=== PATIENT | female | born 1960 | race African-American/Black ===

== ENCOUNTER 2019-10-05 01:00 | Inpatient (IN) ==
[2019-10-05] MEDS ORDERED: KETOROLAC TROMETHAMINE 15 MG/ML VIAL IV STA (01:13)
[2019-10-05] MEDS ORDERED: SODIUM CHLORIDE 0.9% 1000ML 2,000 ML IV ONE (01:13)
[2019-10-05] MEDS ORDERED: MoRPHine SULFATE 4 MG/ML 1 ML CARP\\VIAL IV STA ×2 (01:13→01:41)
[2019-10-05] MEDS ORDERED: ONDANSETRON INJ 2 MG/ML 2 ML VIAL IV STA ×2 (01:13→02:03)
[2019-10-05] MEDS ORDERED: GI COCKTAIL ED USE PO ONE (01:41)
[2019-10-05 01:42] LABS: Hematocrit (blood only) 41.3 % (37-47); Hemoglobin 14.1 g/dL (12.0-16.0); Mean Corpuscular Hemoglobin 31.8 pg (25-34); Mean Corpuscular Hgb Conc 34.1 g/dL (32-36); Mean Corpuscular Volume 93.2 fL (80-100); Mean Platelet Volume 9.7 fL (7.4-10.4); Platelet Count 206 K/uL (130-400); RDW Coefficient of Variation 12.6 % (11.5-14.5); RDW Standard Deviation 43.1 fL (36.4-46.3); Red Blood Count 4.43 M/uL (4.2-5.4); White Blood Count 5.41 K/uL (4.8-10.8)
[2019-10-05 01:59] LABS: Alanine Aminotransferase 26 U/L (12-78); Aspartate Aminotransferase 81 U/L (15-37); BUN Creatinine Ratio 14.8 (10-20); Blood Urea Nitrogen 16 mg/dl (7-18); Calcium 8.8 mg/dl (8.5-10.1); Carbon Dioxide 28 mmol/L (21-32); Chloride 101 mmol/L (98-107); Creatinine Clr Calc Pharmacy 73.8 ml/min; Est GFR (African American) 65.1; Est GFR (Non-African American) 56.1; Glucose 133 mg/dl (70-99); Lipase 89 U/L (73-393); Potassium 2.9 mmol/L (3.5-5.1); Sodium 137 mmol/L (136-145)
[2019-10-05 02:04] LABS: Albumin Globulin Ratio 0.9 (0.9-2); Alkaline Phosphatase 133 U/L (45-117); Bilirubin,Total 0.4 mg/dl (0.2-1); Globulin 4.5 gm/dl (2.5-4.0); Total Protein 8.5 gm/dl (6.4-8.2); Troponin I < 0.015 ng/ml (0-0.045)
[2019-10-05 02:40] LABS: ALC (manual) 3.18 K/uL (1.2-3.4); ANC (manual) 1.71 K/uL (1.4-6.5); Eosinophils # (manual) 0.14 K/uL (0-0.5); Eosinophils % (manual) 2.6 %; Lymphocytes # (manual) 1.23 K/uL (1.2-3.4); Lymphocytes % (manual) 22.8 %; Monocytes # (manual) 0.38 K/uL (0.11-0.59); Neutrophils # (manual) 1.71 K/uL (1.4-6.5); Neutrophils % (manual) 31.6 %; Reactive Lymphocytes # (manual) 1.95 K/uL; Toxic Vacuolation 2+
[2019-10-05] MEDS ORDERED: IOVERSOL 100ml IV PRN (02:40)
[2019-10-05] MEDS ORDERED: POTASSIUM CHLORIDE / WTR 10 MEQ/100 ML PLCT IV ONE (03:19)
--- NOTE | 2019-10-05 04:46 | Emergency Department Note ---
Entered by Skye Mccauley acting as a scribe for Memo Fleming DO History of Present Illness General Chief complaint: Abdominal Pain Stated complaint: abdominal pain Time Seen by Provider: 10/05/19 01:02 Source: patient History of Present Illness Onset (ago): hour(s) (2.5) Location: abdomen (lower) Severity: similar to prior episodes Pain Consistency: + other (persistent) Associated symptoms: + other (negative runny nose); no cough and no nausea/vomiting The patient is a 58 year old female with PMHx of gastric bypass who presents to the Emergency Room with complaints of persistent lower abdominal pain that began 2.5 hours prior to arrival. The patient denies cough, runny nose, nausea, and vomiting. She states that her last bowel movement was just prior to arrival. The patient states that her pain began immediately after eating. The patient states that after her gastric bypass her mesh moved and states that her symptoms feel similar to this prior episode. The patient reports a history of a cholecystectomy. Patient denies any chest pain shortness of breath. Home Medications Home Medications Medication Instructions Recorded Confirmed Type multivitamin 1 tab PO DAILY 10/05/19 10/05/19 History potassium chloride 0 meq PO DIRECTED 10/05/19 10/05/19 History torsemide 20 mg PO DAILY 10/05/19 10/05/19 History Allergies Allergy/AdvReac Type Severity Reaction Status Date / Time Sulfa (Sulfonamide Allergy Hives Verified 10/05/19 02:18 Antibiotics) Past Med/Surg History Surgical History History of cholecystectomy History of gastric bypass Family History Other No pertinent family history in first degree relatives Social History Feels Safe at Home: Yes Smoking Status: Never smoker Review of Systems See HPI for pertinent positives & negatives. and A total of 10 systems reviewed and were otherwise negative Physical Exam Vital Signs Vital Signs - 24 hr 10/05/19 01:10 10/05/19 01:17 10/05/19 01:50 Temperature 36.5 C Temperature Source Oral Pulse Rate 66 57 L Pulse Rate from SpO2 Sensor Respiratory Rate 20 20 Respiratory Effort / Characteristics Non-Labored Respiratory Depth Normal Blood Pressure 128/64 126/73 Blood Pressure Mean 85 84 Blood Pressure Position Lying Pulse Oximetry 98 Oxygen Delivery Method Room Air Room Air Sepsis Recent Fever Within 48 Hours No Sepsis Action Taken by Nursing No Action Required 10/05/19 03:16 Temperature Temperature Source Pulse Rate 85 Pulse Rate from SpO2 Sensor 85 Respiratory Rate 22 Respiratory Effort / Characteristics Respiratory Depth Blood Pressure 111/49 L Blood Pressure Mean 80 Blood Pressure Position Pulse Oximetry 100 Oxygen Delivery Method Room Air Sepsis Recent Fever Within 48 Hours Sepsis Action Taken by Nursing GENERAL: Sitting up in bed, screaming, holding lower abdomen, non-toxic, in hospital gown. EYE EXAM: normal conjunctiva OROPHARYNX: no exudate, no erythema, lips, buccal mucosa, and tongue normal and mucous membranes are moist NECK: supple, no nuchal rigidity, no adenopathy, non-tender LUNGS: Clear to auscultation. Normal chest wall mechanics HEART: Bradycardic rate. No murmurs, S1 normal and S2 normal ABDOMEN: Minimal tenderness under the pannus infraumbilically. Abdomen soft, normo-active bowel sounds, no masses, no rebound or guarding. BACK: Back is symmetrical on inspection and there is no deformity, no midline tenderness, no CVA tenderness. SKIN: no rashes and no bruising UPPER EXTREMITIES: upper extremities are grossly normal. LOWER EXTREMITIES: No pitting edema. NEURO EXAM: Normal sensorium, cranial nerves II-XII grossly intact, normal speech, no gross weakness of arms, no gross weakness of legs. Course Course ED COURSE: Vital signs were reviewed and showed bradycardia. The patients medical record was reviewed The above diagnostic studies were performed and reviewed. ED treatments and interventions as stated above. 0108: The patient was evaluated in room B6. A complete history and physical examination was performed. 0408: I discussed the case with Dr. Vic Olmstead who states that he will evaluate the patient. Dr. Vic Olmstead requests further evaluation of the patient by the hospitalist service. 0411: Upon reevaluation, the patient is resting comfortably. I discussed my findings with the patient and she understands and agrees with the treatment plan. Based on the patients age, coexisting illnesses, exam and lab findings the decision to treat as an inpatient was made. The patient remained stable while under my care. 0413: The patient will be evaluated for further management. I discussed the case with Dr. Curtis Hospitalist who accepts the patient for further evaluation. Administered Medications Ioversol (Optiray 320 100ml) 94 ml IV ONCE PRN PRN Reason: Interaction Checking Stop: 10/09/19 02:39 Last Admin: 10/05/19 02:40 Dose: 94 ml Documented by: [id number] Discontinued Medications Al Hydrox/Mg Hydrox/Simethicone () 1 dose PO ONE ONE Stop: 10/05/19 01:42 Last Admin: 10/05/19 01:55 Dose: 1 dose Documented by: [id number] Sodium Chloride (Nss 1000ml) 2,000 mls @ 999 mls/hr IV .Q2H1M ONE Stop: 10/05/19 03:13 Last Infusion: 10/05/19 04:04 Dose: 0 mls/hr Documented by: [id number] Admin: 10/05/19 01:38 Dose: 999 mls/hr Documented by: [id number] Potassium Chloride (K Jaime / Wtr) 10 meq in 100 mls @ 100 mls/hr IV ONE ONE Stop: 10/05/19 04:18 Last Admin: 10/05/19 04:24 Dose: 100 mls/hr Documented by: [id number] Ketorolac Tromethamine (Toradol) 15 mg IV NOW STA Stop: 10/05/19 01:14 Last Admin: 10/05/19 01:28 Dose: 15 mg Documented by: [id number] Morphine Sulfate (Morphine Sulfate) 4 mg IV NOW STA Stop: 10/05/19 01:14 Last Admin: 10/05/19 01:28 Dose: 4 mg Documented by: [id number] Morphine Sulfate (Morphine Sulfate) 4 mg IV NOW STA Stop: 10/05/19 01:42 Last Admin: 10/05/19 01:54 Dose: 4 mg Documented by: [id number] Ondansetron HCl (Zofran) 4 mg IV NOW STA Stop: 10/05/19 01:14 Last Admin: 10/05/19 01:28 Dose: 4 mg Documented by: [id number] Ondansetron HCl (Zofran) 4 mg IV NOW STA Stop: 10/05/19 02:04 Last Admin: 10/05/19 02:13 Dose: 4 mg Documented by: [id number] Medical Decision Making Differential Diagnosis Differential diagnoses includes but is not limited to gastritis, peptic ulcer disease, GERD, gallbladder disease, pancreatitis, small bowel obstruction, acute coronary syndrome, pericarditis, ischemic bowel, irritable bowel disease, irritable bowel syndrome, appendicitis, diverticulitis, malignancy, hernia, urinary tract infection, torsion, /ectopic , perforation, trauma, infectious. Medical Records Attestation: I reviewed the patient's medical records. Home Medications Current Medication List: was personally reviewed by me Laboratory Data Attestation: I reviewed the patient's lab results. Result diagrams: 10/05/19 01:29 10/05/19 01:29 Lab Results 10/05/19 10/05/19 Range/Units 01:29 01:29 WBC 5.41 (4.8-10.8) K/uL RBC 4.43 (4.2-5.4) M/uL Hgb 14.1 (12.0-16.0) g/dL Hct 41.3 (37-47) % MCV 93.2 (80-100) fL MCH 31.8 (25-34) pg MCHC 34.1 (32-36) g/dL RDW Std Deviation 43.1 (36.4-46.3) fL RDW Coeff of Gonzalo 12.6 (11.5-14.5) % Plt Count 206 (130-400) K/uL MPV 9.7 (7.4-10.4) fL Neutrophils % (Manual) 31.6 % Lymphocytes % (Manual) 22.8 % Reactive Lymphs % (Man) 36.0 % Monocytes % (Manual) 7.0 % Eosinophils % (Manual) 2.6 % Neutrophils # (Manual) 1.71 (1.4-6.5) K/uL Total Absolute Neuts 1.71 (1.4-6.5) K/uL Lymphocytes # (Manual) 1.23 (1.2-3.4) K/uL Reactive Lymphs # 1.95 K/uL Total Abs Lymphocytes 3.18 (1.2-3.4) K/uL Monocytes # (Manual) 0.38 (0.11-0.59) K/uL Eosinophils # (Manual) 0.14 (0-0.5) K/uL Toxic Vacuolation 2+ Sodium 137 (136-145) mmol/L Potassium 2.9 L (3.5-5.1) mmol/L Chloride 101 (98-107) mmol/L Carbon Dioxide 28 (21-32) mmol/L Anion Gap 8.0 (3-11) BUN 16 (7-18) mg/dl Creatinine 1.08 (0.6-1.2) mg/dl Est Cr Clr Drug Dosing 73.8 ml/min Est GFR ( Amer) 65.1 Est GFR (Non-Af Amer) 56.1 BUN/Creatinine Ratio 14.8 (10-20) Glucose 133 H (70-99) mg/dl Calcium 8.8 (8.5-10.1) mg/dl Total Bilirubin 0.4 (0.2-1) mg/dl AST 81 H (15-37) U/L ALT 26 (12-78) U/L Alkaline Phosphatase 133 H (45-117) U/L Troponin I < 0.015 (0-0.045) ng/ml Total Protein 8.5 H (6.4-8.2) gm/dl Albumin 4.0 (3.4-5.0) gm/dl Globulin 4.5 H (2.5-4.0) gm/dl Albumin/Globulin Ratio 0.9 (0.9-2) Lipase 89 (73-393) U/L Imaging Data Radiologist's Impression: Radiology results as stated below per my review and the radiologist's interpretation: CT ABDOMEN & PELVIS With Contrast: Small bowel obstruction with transition point of which is in the left lower quadrant (image [id number]). Fecalization within the upstream bowel which measures 4.4 cm. No pneumatosis, portal venous gas, or free air. Status post Trini-en-Y gastric bypass. Reactive free fluid in the left lower quadrant. No fluid collection. Radiologist: Brooks Chang MD Study ready at 02:43 and initial results transmitted at 03:09 ECG Data Attestation: I personally reviewed and interpreted this ECG as follows: Indication: + abdominal pain Rate (beats per minute): 58 Rhythm: + sinus bradycardia ECG Intervals/blocks: + Prolonged QT ECG Makanda: + Normal ECG Findings: no PVCs Blood Pressure Blood Pressure Findings: Normal blood pressure MDM Narrative Patient is a 58-year-old female from the [facility] that presents the ER for abdominal pain. Past medical history of gastric bypass about 3 to 4 years ago. IV was established blood work was obtained. Labs show no significant leukocyt osis or anemia. BMP with mild hypokalemia at 2.9. LFTs bilirubin troponin lipase was unremarkable. EKG was nondiagnostic. CT of the abdomen pelvis shows small bowel obstruction. Patient was given 2 dose of IV morphine and IV Zofran. She felt significantly better. She was given IV fluids. She was updated bedside. Discussed with general surgery who recommended admission to the hospitalist. They were both updated and patient was admitted for further work- up of her SBO. Potassium was repleted IV as well throughout the stay in the ER. Impression & Plan SBO (small bowel obstruction), Abdominal pain, Vomiting, Hypokalemia Discharge Plan Visit Data Chief Complaint: Abdominal Pain Stated Complaint: abdominal pain ED Provider: Memo Fleming Discharge Problem: SBO (small bowel obstruction), Abdominal pain, Vomiting, Hypokalemia Patient Disposition: Being Evaluated by Hospitalist Forms Stand Alone Forms: Call Back Authorization, [facility] Prescriptions Prescriptions: No Action torsemide 20 mg Tablet 20 mg PO DAILY RF: 0 multivitamin Tablet 1 tab PO DAILY RF: 0 potassium chloride 10 mEq Tablet Extended Release 0 meq PO DIRECTED RF: 0 Referrals Referrals: PCP,NO [Primary Care Provider] - Discharge Problem: Abdominal pain Qualifiers: Abdominal location: lower abdomen, unspecified Qualified Code(s): R10.30 - Lower abdominal pain, unspecified Vomiting Qualifiers: Vomiting type: unspecified Vomiting Intractability: non-intractable Nausea presence: with nausea Qualified Code(s): R11.2 - Nausea with vomiting, unspecified The scribe's documentation has been prepared under my direction and personally reviewed by me in its entirety. I confirm that the note above accurately reflects all work, treatment, procedures, and medical decision making performed by me.
--- NOTE | 2019-10-05 05:59 | Surgery Consultation ---
Date of Consultation October 05, 2019 Assessment & Plan (1) SBO (small bowel obstruction): pt is a 58 year-old female who presents to ER with 4 hours history abdominal pain, with nausea and vomiting. IMP: SBO, Hypokalemia Plan, I agrees with hospitalist admit pt to hospital , conservative treatment first, NPO, IV fluid, control pain, may need NG tube insertion if pt gets more abdominal or nausea and vomiting, correct low K. repeat labs in am, D/W surgery indication if pt get worse symptoms, pt said that she prefer to go back her surgeon, [place], [place] if she needs surgery. 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, pt understood, she agrees with the plans, I answered all questions, Present on Admission?: Yes (2) Abdominal pain: (3) Vomiting: (4) Hypokalemia: History of Present Illness History of Present Illness Chief complaint: Abdominal Pain Stated complaint: abdominal pain Time Seen by Provider: 10/05/19 01:02 Source: patient History of Present Illness Onset (ago): hour(s) (2.5) Location: abdomen (lower) Severity: similar to prior episodes Pain Consistency: + other (persistent) Associated symptoms: + other (negative runny nose); no cough and no nausea/vomiting The patient is a 58 year old female with PMHx of gastric bypass who presents to the Emergency Room with complaints of persistent lower abdominal pain that began 2.5 hours prior to arrival. The patient denies cough, runny nose, nausea, and vomiting. She states that her last bowel movement was just prior to arrival. The patient states that her pain began immediately after eating. The patient states that after her gastric bypass her mesh moved and states that her symptoms feel similar to this prior episode. The patient reports a history of a cholecystectomy. Patient denies any chest pain shortness of breath. I (Donny Phipps MD)got a call for consult SBO, I reviewed pt's H/P, labs, CT scan with pt. pt had gastric bypass surgery with loss 260 LBS 3 years ago, then pt had cholecystectomy and repair ventral hernia with mesh X2 , 2 years ago , all surgery were done in [place], [place]. now, pt has no abdominal, no nausea or vomiting, pt passed BM today. Allergies Allergy/AdvReac Type Severity Reaction Status Date / Time Sulfa (Sulfonamide Allergy Hives Verified 10/05/19 02:18 Antibiotics) Home Medications Home Medications Medication Instructions Recorded Confirmed Type multivitamin 1 tab PO DAILY 10/05/19 10/05/19 History potassium chloride 0 meq PO DIRECTED 10/05/19 10/05/19 History torsemide 20 mg PO DAILY 10/05/19 10/05/19 History Patient History Surgical History History of cholecystectomy History of gastric bypass Family History Other No pertinent family history in first degree relatives Social History Feels Safe at Home: Yes Smoking Status: Never smoker Review of Systems Review of Systems: All systems reviewed & are unremarkable except as noted in HPI & below Constitutional: as per Subjective / HPI Ear, Nose, Mouth, Throat: as per Subjective / HPI Respiratory: as per Subjective / HPI Cardiovascular: as per Subjective / HPI Gastrointestinal: gastric bypass 3 years ago, cholecystectomy, repair ventral hernia with mesh 2 years ago, Genitourinary: as per Subjective / HPI Musculoskeletal: as per Subjective / HPI Integumentary: as per Subjective / HPI Neurologic: as per Subjective / HPI Psychiatric: as per Subjective / HPI Endocrine: as per Subjective / HPI Hematologic / Lymphatic: as per Subjective / HPI Physical Exam Constitutional: WD/WN, vitals as above well developed and well nourished Eyes: PERRL, conjunctivae normal, anicteric sclerae ENMT: external ear and nose normal, oropharynx normal Neck: trachea midline, no thyromegaly Respiratory: normal respiratory effort, lungs clear to auscultation normal respiratory effort Cardiovascular: RRR, no murmur, no edema Rate/Rhythm: regular rate and regular rhythm Heart Sounds: normal S1 and normal S2 Gastrointestinal (Abdomen): normal bowel sounds, soft, nontender, no hepatosplenomegaly Percussion/Palpation: abdomen soft no tenderness, no distend, BS +, Musculoskeletal: no cyanosis or clubbing, extremities motor strength 5/5 Skin: no rashes, warm and dry Neurologic: patellar DTR's 2+ bilat, sensation intact Psychiatric: Orientation: alert and oriented x 3 Results & Data Vital Signs (Past 12 Hours) Vital Signs Temp Pulse Resp BP Pulse Ox 12/13/19 05:00 70 22 136/77 98 10/05/19 04:30 61 16 123/73 95 10/05/19 04:14 66 20 132/78 100 10/05/19 03:16 85 22 111/49 L 100 10/05/19 01:50 57 L 20 126/73 10/05/19 01:17 98 10/05/19 01:10 36.5 C 66 20 128/64 Laboratory Results Abnormal lab results 10/05/19 Range/Units 01:29 Potassium 2.9 L (3.5-5.1) mmol/L Glucose 133 H (70-99) mg/dl AST 81 H (15-37) U/L Alkaline Phosphatase 133 H (45-117) U/L Total Protein 8.5 H (6.4-8.2) gm/dl Globulin 4.5 H (2.5-4.0) gm/dl Diagnostic Findings CT Scan- SBO, formal report is pending (1) Abdominal pain Abdominal location: lower abdomen, unspecified Qualified Code(s): R10.30 - Lower abdominal pain, unspecified (2) Vomiting Nausea presence: with nausea Vomiting Intractability: non-intractable Vomiting type: unspecified Qualified Code(s): R11.2 - Nausea with vomiting, unspecified
[2019-10-05] MEDS ORDERED: HYDROmorphone INJ 0.5 MG/0.5 ML SYR IV PRN (06:10)
[2019-10-05] MEDS ORDERED: ACETAMINOPHEN 325 MG TAB PO PRN (06:10)
[2019-10-05] MEDS ORDERED: ONDANSETRON INJ 2 MG/ML 2 ML VIAL IV PRN (06:10)
[2019-10-05] MEDS ORDERED: POTASSIUM CHLORIDE 20 MEQ/15 ML UDC PO STA (06:10)
[2019-10-05] MEDS: D5NSS + 20MEQ KCL 20 MEQ/1,000 ML BAG IV SCH ×2 (06:32→15:21)
--- NOTE | 2019-10-05 07:11 | CT Scan Report ---
ABDOMEN AND PELVIS CT WITH IV CONTRAST CT DOSE: 1768.72 mGy.cm HISTORY: Generalized abd pain gastric bypass TECHNIQUE: Multiaxial CT images of the abdomen and pelvis were performed following the use of intrave nous contrast. A dose lowering technique was utilized adhering to the principles of ALARA. COMPARISON STUDY: None. FINDINGS: The lung bases are clear. No pneumoperitoneum. No pneumatosis. No suspicious lytic are jacob tic osseous lesions. Cholecystectomy. The liver, spleen, adrenal glands, pancreas, and right kidney a re unremarkable. Small linear scarlike density within the left kidney. No hydronephrosis. No retroper itoneal lymphadenopathy. The bladder, uterus, and right adnexa are unremarkable. 1.3 cm rim calcified nodule within the left ovary. Moderate well-formed stool within the proximal colon. Normal appendix. Twisting of the mesentery within the left mid abdomen best seen on images 234 through 267 raises the possibility of internal hernia. This is near the jejunal anastomosis. Tight stenosis within the jeju nal loop with a focal transition point best seen on images 241 through 263. Therefore, this is consis tent with a small bowel obstruction. The proximal loops of small bowel are distended up to 4 cm in di ameter. There is mild mesenteric edema at the transition point. Prior distal pancreatectomy with mery rojejunostomy. IMPRESSION: Twisting of the mesentery within the left mid abdomen with a tight stenosis within a jejunal loop. Th erefore, this is concerning for internal hernia resulting in a small bowel obstruction. There is asso ciated mesenteric edema. Surgical consultation recommended. Findings were discussed with Dr. Lb spears [facility] at 8:05 AM on 10/05/2019. Electronically signed by: Naeem Rushing M.D. 10/05/2019 8:27 AM
--- NOTE | 2019-10-05 08:02 | Discharge Summary ---
Date of Service October 05, 2019 Admission HPI Per Admitting Provider 58 year old female with PMHx of gastric bypass who presents to the Emergency Room with complaints of persistent lower abdominal pain that began 2.5 hours prior to arrival. The patient denies cough, runny nose, nausea, and vomiting. She states that her last bowel movement was just prior to arrival. The patient states that her pain began immediately after eating. The patient states that after her gastric bypass her mesh moved and states that her symptoms feel similar to this prior episode. The patient reports a history of a cholecystectomy. Patient denies any chest pain shortness of breath. Admission Exam Per Admitting Provider GENERAL: Sitting up in bed, screaming, holding lower abdomen, non-toxic, in hospital gown. EYE EXAM: normal conjunctiva OROPHARYNX: no exudate, no erythema, lips, buccal mucosa, and tongue normal and mucous membranes are moist NECK: supple, no nuchal rigidity, no adenopathy, non-tender LUNGS: Clear to auscultation. Normal chest wall mechanics HEART: Bradycardic rate. No murmurs, S1 normal and S2 normal ABDOMEN: Minimal tenderness under the pannus infraumbilically. Abdomen soft, normo-active bowel sounds, no masses, no rebound or guarding. BACK: Back is symmetrical on inspection and there is no deformity, no midline tenderness, no CVA tenderness. SKIN: no rashes and no bruising UPPER EXTREMITIES: upper extremities are grossly normal. LOWER EXTREMITIES: No pitting edema. NEURO EXAM: Normal sensorium, cranial nerves II-XII grossly intact, normal speech, no gross weakness of arms, no gross weakness of legs. Principal Diagnosis SBO Jejunal Stenosis Abd Pain Nausea/Vomiting Obesity c BMI 39 Hypokalemia Discharge Exam ROS-No Headache, No Visual Changes, + Nausea, + Vomiting, No Fever, No Chills, No Neck Pain or Stiffness, No Chest Pain, No Palpitations, No SOB, No MCINTYRE, No Cough, No Sputum, No Wheezing,+ Abdominal Pain, No Diarrhea, No Hematemesis, No Hemoptysis, No Unexpected Weight Loss, No Flank pain, No Melena, No Hematochezia, No Frequency, No Urgency, No Burning, No Hematuria, No Rashes, No Diaphoresis. Appetite is Normal Physical Exam Gen-AAO x 3, NAD, Afebrile Head-NCAT, EOMI, PERRLA, Anicteric Sclera, No Posterior Pharyngeal Erythema Neck-Supple, No JVD, No Thyromegaly, No Masses, No LAD, No Bruits Lungs-Clear to Auscultation Bilaterally, No Rales, No Rhonchi, No Wheezing, No Crepitus Chest-No S4, +S1, +S2, No S3, No Murmurs, No Rubs, No Gallops, No Ectopy Abdomen-Soft, Bowel Sounds Present, Tender, Non Distended, No Hepatomegaly, No Splenomegaly, No Palpable Masses, No Rebound, No Rigidity, No Guarding Musculoskeletal-Full Range of Motion Bilaterally, No CVAT Extremities-No Cyanosis, No Clubbing, No Edema Nuero-Cranial Nerves II-XII grossly intact, Motor WNL, DTRs WNL, Strength WNL, Non Focal Psych-Normal Mood Discharge Data Allergies Allergy/AdvReac Type Severity Reaction Status Date / Time Sulfa (Sulfonamide Allergy Hives Verified 10/05/19 02:18 Antibiotics) Consultations 10/05/19 04:08 Consult General Surgery Stat 10/05/19 04:14 ED Decision to Admit Stat Ordered Studies 10/05/19 01:13 CT abd pelvis IV con only Urgent -Twisting of the mesentery within the left mid abdomen with a tight stenosis within a jejunal loop. Therefore, this is concerning for internal hernia resulting in a small bowel obstruction. There is associated mesenteric edema. Surgical consultation recommended. Current Diagnoses Hypokalemia (10/05/19) Unspecified intestinal obstruction, unspecified as to partial versus complete obstruction (10/05/19) Lower abdominal pain, unspecified (10/05/19) Nausea with vomiting, unspecified (10/05/19) Allergies Sulfa (Sulfonamide Antibiotics) Allergy (Verified 10/05/19 02:18) Hives Height/Weight/Isolation Height 5 ft 8 in Weight 115.108 kg Chemistry 10/05/19 01:29 Sodium 137 Potassium 2.9 L Chloride 101 Carbon Dioxide 28 Anion Gap 8.0 BUN 16 Creatinine 1.08 Glucose 133 H Hospital Course (1) SBO (small bowel obstruction): (2) Abdominal pain: (3) Vomiting: (4) Hypokalemia: Patient had a CT which revealed Twisting of the mesentery within the left mid abdomen with a tight stenosis within a jejunal loop. Therefore, this is concerning for internal hernia resulting in a small bowel obstruction. There is associated mesenteric edema. Surgical consultation recommended. I discussed the case c Rad[place] [facility]her, who has accepted the patient for transfer [place] [facility] Total Time Total Time Spent Total Time Spent (In Minutes): 60 mins Total Time Includes: Examination of the Patient, Discharge Planning, Medication Reconciliation and Communication With Other Providers Discharge Plan Discharge Items Patient Disposition: Transfer Acute Care Hospital Reason For Visit: ABDOMINAL PAIN Discharge Diagnosis: SBO Jejunal Stenosis Abd Pain Nausea/Vomiting Obesity c BMI 39 Hypokalemia Condition on Discharge: Good Activity: As commented below Activity Comment: Bedrest Lifting: None Bathing: No limitations Exercise/Sports: None Driving/Machine Use: No limitations Weightbearing: Full weightbearing Non-emergency contact: Primary Care Provider and Surgeon Call non-emergency contact if: you have any medication questions Follow-up/Referrals: PCP,NO [Primary Care Provider] - Diet: Bariatric Addtl Attending Provider Instructions: Eval for Surgery [place] [facility] [place] Pending Studies at Discharge: No Stand-Alone Forms: Call Back Authorization, [facility] Skilled Items Patient informed of condition?: Yes DNR: No Discharge Level of Care: Other Communicable Disease: No Discharge Prognosis: Stable Lines: Peripheral IV Urinary Catheter: No Medications and DC Order Prescriptions: Continued multivitamin Tablet 1 tab PO DAILY RF: 0 Discontinued torsemide 20 mg Tablet 20 mg PO DAILY RF: 0 potassium chloride 10 mEq Tablet Extended Release 0 meq PO DIRECTED RF: 0 Discharge Orders: Discharge Order (Routine); Ordered 10/05/19 Ordered By: Matt Garner Admission Data Admit Date/Time: 10/05/19 05:16 Attending Provider: Matt Garner Admit Provider: Jam Leung Primary Care Provider: PCP,NO Other Providers: Donny Phipps ; Jam Leung
--- NOTE | 2019-10-05 08:41 | History and Physical Report ---
DATE OF ADMISSION: 10/05/2019 CHIEF COMPLAINT: Abdominal pain. HISTORY OF PRESENT ILLNESS: This is a 58-year-old female with past medical history significant for gastric bypass done about 3 years ago, chronic lower extremity lymphedema. The patient denies any other medical problems. She is from [place], but she has moved to [email or web address] about 6 months ago to live with her son who goes to [employer]. Presents with severe abdominal pain. The patient says that after eating her dinner within half an hour she noticed severe pain in her abdomen which was not getting better and she was feeling nauseous and she came to the hospital and imaging study shows small-bowel obstruction. Last bowel movement was before coming to the hospital. Currently, couple of doses of IV morphine and Toradol. The pain has improved. The nausea has improved. She is resting comfortably and hemodynamically stable. Denies any headache, no blurred vision, no earache, no runny nose, no sore throat, no difficulty swallowing, no chest pain, no shortness of breath, no cough, no fever, no chills, no recent blood in the stools or black stools. Normal bowel and bladder movements. No swelling in the legs, no rash. Never had bowel obstruction in the past. ALLERGIES: SULFA ANTIBIOTICS. PAST MEDICAL HISTORY: As mentioned above. MEDICATIONS: Multivitamin, potassium chloride, torsemide 20 mg daily. PAST SURGICAL HISTORY: Significant for cholecystectomy and gastric bypass. FAMILY HISTORY: Significant for father with history of gastric cancer. Mother had bowel obstruction and pulmonary embolism. SOCIAL HISTORY: Denies smoking, no alcohol, no drugs. Currently living with her son. REVIEW OF SYMPTOMS: As per HPI. Rest of review of systems negative. PHYSICAL EXAMINATION: GENERAL: The patient is moderate built, not in acute distress. VITAL SIGNS: Temperature 36.5, pulse 85, respiratory rate 22, blood pressure 111/40, oxygen 100% room air. HEENT: No pallor, no icterus. Pupils equal, round, reactive to light. NECK: No neck masses, no carotid bruit. CARDIOVASCULAR: S1, S2 heard, regular rate and rhythm, no murmur, no gallop. RESPIRATORY SYSTEM: Normal AP diameter. No thyromegaly. No wheezing, no crackles. ABDOMEN: Soft, bowel sounds not heard. No tenderness on palpation. No guarding. No rigidity. No distention. CENTRAL NERVOUS SYSTEM: Alert and awake and oriented. Obeys all commands. Moves extremities. Nonfocal. EXTREMITIES: No edema, no erythema. Lower extremity, chronic lymphedema present, no erythema seen. LABORATORIES DATA: WBC 5.4, hemoglobin 14.1, hematocrit 41.3, platelets 206. Sodium 137, potassium 2.9, chloride 101, CO2 of 28, BUN 16, creatinine 1.08, serum glucose 133, calcium 8.3, total bilirubin 0.4, AST 81, ALT 26, alkaline phosphatase 133. Troponin I less than 0.015. Lipase 189. CT of abdomen and pelvis pending. ASSESSMENT AND PLAN: This is a 58-year-old female with severe abdominal pain, found to have small-bowel obstruction. 1. Small-bowel obstruction, history of gastric bypass surgery, and history of cholecystectomy. No bowel obstruction in the past. With pain medication, the pain has improved. Nausea has improved. If pain or nausea comes back, will place an NG tube. Surgery was notified by the ER and advised to treat conservatively with n.p.o., IV fluids. Started on IV D5 normal saline with 20 of KCl at 100 mL per hour, IV Dilaudid p.r.n., IV Zofran p.r.n. Monitor on the medical floor.Will follow final Ct scan report. 2. Hypokalemia. We will replace, also added potassium supplements to the iv fluids. We will recheck potassium and also check magnesium today. 3. History of gastric bypass surgery, on multivitamin tablets, needs follow up for electrolyte and vitamin deficiency. 3. History of chronic lower extremity lymphedema, we are holding torsemide, started on IV fluids. Monitor for any volume overload. 4. Deep venous thrombosis prophylaxis, sequential compression devices for now. 5. Disposition: Close monitoring in medical floor. Level 1 full code. MTDD
[2019-10-05 14:21] LABS: Magnesium 1.9 mg/dl (1.8-2.4); Potassium 3.7 mmol/L (3.5-5.1)
[2019-10-05 16:05] LABS: Appearance Urine Clear (Clear); Bacteria Urine Automated Negative (Negative); Bilirubin Urine Negative (Negative); Blood Urine Negative (Negative); Cast Urine Automated 0 /lpf (0-5); Color Urine Dark Yellow; Glucose Urine UA Negative (Negative); Ketones Urine Negative (Negative); Leukocyte Esterase Urine Trace (Negative); Nitrite Urine Negative (Negative); Protein Urine Negative (Negative); RBC Urine Automated 0-4 /hpf (0-4); Specific Gravity Urine > 1.045 (1.000-1.030); Urobilinogen Urine Negative (Negative)
== END 2019-10-05 19:33 | disposition short-term general hospital (02) | DRG 390 ==
LOC: ED 01:00 → INTOOBSV 05:16 → 3W 05:16 → OBSVTOIN 05:16 → 3W 05:54